=== PATIENT | female | born 1945 | race Caucasian/White ===

== ENCOUNTER 2017-07-30 10:26 | Observation (INO) | payer MEDICARE, MEDICAID ==
[~2017-07-30] VITALS: Ht 149.9 cm; Wt 73.5 kg
[2017-07-30] VITALS (11 sets, daily range): BP systolic 96–133; BP diastolic 55–77; PULSE 93–104; RESP 18–20; TEMP 98–98.8; O2SAT 90–100
[~2017-07-30 10:26] MED LIST: FERRF325 PO; HYDR25TA35 PO; LEVA750T9 PO; VENTAER INH
[2017-07-30] MEDS ORDERED: AMLO10TA2 PO (10:37)
[2017-07-30] MEDS ORDERED: HEMO324T PO (10:37)
--- NOTE | 2017-07-30 10:49 | PD ---
HPI Chief Complaint: Abnormal Results Time Seen by Provider: 10:35 Travel History International Travel<30 days: No Contact w/Intl Traveler<30days: No Traveled to known affect area: No History of Present Illness HPI This 72-year-old female was told to come here for blood transfusion. She had blood work done a few days ago which showed that her hemoglobin was 5 she has a history of anemia. She apparently bleeds from hemorrhoids. She has declined further GI workup including upper and lower endoscopies. She has not required transfusion before. She does get short of breath with exertion. She has not had any chest pain. She has a history of hypertension she has no history of diabetes. She has had iron deficiency anemia for quite some time and has been on different preparations. She does not tolerate them well but apparently has been on Hemocyte recently. [facility] Past Medical History Anemia: Yes Cardiovascular Problems: Yes (HTN) Diminished Hearing: Yes ([place]) Hypertension: Yes Influenza Vaccination: No ?: Not Ovarian Cysts: Yes Past Surgical History Eye Surgery: Yes (CATARACTS) Social History Alcohol Use: No Tobacco Use: Yes (06/11 PPD) Substance Use: No Allergies-Medications (Allergen,Severity, Reaction): Coded Allergies: Sulfa (Sulfonamide Antibiotics) (Unverified Allergy, Mild, 07/30/17) penicillin G (Unverified Allergy, Mild, 07/30/17) Reported Meds & Prescriptions Reported Meds & Active Scripts Active Reported Amlodipine (Amlodipine Besylate) 10 Mg Tab 10 Mg PO DAILY Hemocyte (Ferrous Fumarate) 324 Mg (106 Mg Iron) Tab 325 Mg PO DAILY Review of Systems General / Constitutional: No: Fever, Chills Eyes: No: Diploplia, Blurred Vision HENT: No: Headaches, Vertigo Cardiovascular: No: Chest Pain or Discomfort, Palpitations Respiratory: No: Cough, Shortness of Breath Gastrointestinal: No: Nausea, Vomiting, Diarrhea Genitourinary: No: Urgency, Frequency Musculoskeletal: No: Myalgias Skin: No Rash, No Itching Neurologic: No: Weakness, Dizziness Endocrine: No: Heat Intolerance, Cold Intolerance Hematologic/Lymphatic: No: Easy Bruising Physical Exam Narrative GENERAL: Well-developed female SKIN: Focused skin assessment warm/dry. Somewhat pale HEAD: Atraumatic. Normocephalic. EYES: Pupils equal and round. No scleral icterus. No injection or drainage. ENT: No nasal bleeding or discharge. Mucous membranes pink and moist. NECK: Trachea midline. No JVD. CARDIOVASCULAR: Regular rate and rhythm. No murmur appreciated. RESPIRATORY: No accessory muscle use. Clear to auscultation. Breath sounds equal bilaterally. GASTROINTESTINAL: Abdomen soft, non-tender, nondistended. Hepatic and splenic margins not palpable. MUSCULOSKELETAL: No obvious deformities. No clubbing. No cyanosis. No edema. NEUROLOGICAL: Awake and alert. No obvious cranial nerve deficits. Motor grossly within normal limits. Normal speech. PSYCHIATRIC: Appropriate mood and affect; insight and judgment normal. Data Data Last Documented VS Vital Signs Date Time Temp Pulse Resp B/P (MAP) Pulse Ox O2 Delivery O2 Flow Rate FiO2 07/30/17 10:28 98.7 103 18 96/55 (69) 99 Orders Orders Complete Blood Count With Diff (07/30/17 10:47) Basic Metabolic Panel (Bmp) (07/30/17 10:47) Red Blood Cells (Rbc) (07/30/17 10:47) Type And Screen (07/30/17 10:47) Chest, Single Ap (07/30/17 10:49) Potassium Chloride (Kcl) (07/30/17 11:30) Blood Product Administration (07/30/17 11:33) Admit Order (Ed Use Only) (07/30/17 11:43) Labs Laboratory Tests Test 07/30/17 11:00 White Blood Count 7.9 TH/MM3 Red Blood Count 2.55 MIL/MM3 Hemoglobin 5.1 GM/DL Hematocrit 17.0 % Mean Corpuscular Volume 66.9 FL Mean Corpuscular Hemoglobin 20.1 PG Mean Corpuscular Hemoglobin Concent 30.0 % Red Cell Distribution Width 20.7 % Platelet Count 330 TH/MM3 Mean Platelet Volume 8.1 FL Neutrophils (%) (Auto) 69.6 % Lymphocytes (%) (Auto) 19.4 % Monocytes (%) (Auto) 9.3 % Eosinophils (%) (Auto) 1.1 % Basophils (%) (Auto) 0.6 % Neutrophils # (Auto) 5.6 TH/MM3 Lymphocytes # (Auto) 1.5 TH/MM3 Monocytes # (Auto) 0.7 TH/MM3 Eosinophils # (Auto) 0.1 TH/MM3 Basophils # (Auto) 0.0 TH/MM3 CBC Comment AUTO DIFF Differential Comment AUTO DIFF CONFIRMED Blood Urea Nitrogen 13 MG/DL Creatinine 0.46 MG/DL Random Glucose 94 MG/DL Calcium Level 8.2 MG/DL Sodium Level 139 MEQ/L Potassium Level 3.4 MEQ/L Chloride Level 108 MEQ/L Carbon Dioxide Level 24.6 MEQ/L Anion Gap 6 MEQ/L Estimat Glomerular Filtration Rate 134 ML/MIN Magnesium Level 2.5 MG/DL MDM Medical Decision Making Medical Screen Exam Complete: Yes Emergency Medical Condition: Yes Medical Record Reviewed: Yes Differential Diagnosis Differential includes anemia, iron deficiency anemia, Narrative Course Hemoglobin today is 5.1. She'll be admitted for transfusion. Patient sees her doctor on a regular basis. She has refused upper and lower endoscopies in the past Diagnosis Primary Impression: Anemia Qualified Codes: D50.0 - Iron deficiency anemia secondary to blood loss ( chronic) Admitting Information Admitting Physician Requests: Observation Ananth Cohen MD Jul 30, 2017 10:49
[2017-07-30 11:10] LABS: AUTOMATED NEUTROPHIL # 5.6 TH/MM3 (1.8-7.7); BASOPHIL % 0.6 % (0.0-2.0); EOSINOPHIL # 0.1 TH/MM3 (0-0.4); EOSINOPHIL % 1.1 % (0.0-4.0); LYMPH % 19.4 % (9.0-44.0); LYMPHOCYTE # 1.5 TH/MM3 (1.0-4.8); MEAN CELL VOLUME 66.9 FL (80.0-100.0); MEAN CORPUSCULAR HEMOGLOBIN 20.1 PG (27.0-34.0); MEAN PLATELET VOLUME 8.1 FL (7.0-11.0); MONO % 9.3 % (0.0-8.0); MONOCYTE # 0.7 TH/MM3 (0-0.9); NEUT % 69.6 % (16.0-70.0); PLATELET COUNT 330 TH/MM3 (150-450); RED BLOOD COUNT 2.55 MIL/MM3 (4.00-5.30); RED CELL DISTRIBUTION WIDTH 20.7 % (11.6-17.2); WHITE BLOOD COUNT 7.9 TH/MM3 (4.0-11.0)
[2017-07-30 11:21] LABS: CALCIUM 8.2 MG/DL (8.5-10.1)
[2017-07-30 11:22] LABS: BICARBONATE 24.6 MEQ/L (21.0-32.0)
--- NOTE | 2017-07-30 11:22 | RADRPT ---
EXAM DATE/TIME: 07/30/2017 11:03 [place] COMPARISON: CHEST PA & LAT, July 06, 2011, 17:40. INDICATIONS : Short of breath on exertion. Sent by MD due to low hemoglobin. MEDICAL HISTORY : Hypertension. Ovarian cyst. Smoker. Anemia. SURGICAL HISTORY : None. ENCOUNTER: Initial ACUITY: 1 day PAIN SCORE: 0/10 LOCATION: chest FINDINGS: A single view of the chest demonstrates the lungs to be symmetrically aerated without evidence of mas s, infiltrate or effusion. The cardiomediastinal contours are unremarkable. Flocculent calcificatio n in the proximal right humerus characteristic of enchondroma, unchanged in appearance and compared t o prior chest x-ray June 2011. CO NCLUSION: The lungs are clear. Luis Carlos Adames MD on July 30, 2017 at 11:19 Board Certified Radiologist. This report was verified electronically.
[2017-07-30 11:25] LABS: CREATININE 0.46 MG/DL (0.50-1.00)
[2017-07-30 11:28] LABS: HEMOGLOBIN 5.1 GM/DL (11.6-15.3)
[2017-07-30] MEDS ORDERED: POTASSIUM CHLORIDE 20 MEQ CONTROLLED RELEASE TAB PO ONE (11:30)
[2017-07-30] MEDS ORDERED: LACTULOSE SYRUP 20 GM/30 ML CUP PO PRN (13:00)
[2017-07-30] MEDS ORDERED: MAGNESIUM HYDROXIDE SUSP 30 ML CUP PO PRN (13:00)
[2017-07-30] MEDS ORDERED: NALOXONE HCL 0.4 MG/ML AMP IV PUSH PRN (13:00)
[2017-07-30] MEDS ORDERED: SENNOSIDES 8.6 MG TAB PO PRN (13:00)
[2017-07-30] MEDS ORDERED: BISACODYL 10 MG SUPP RECTAL PRN (13:00)
[2017-07-30] MEDS ORDERED: SODIUM CHLORIDE 0.9% FLUSH 10 ML FLUSH IV FLUSH PRN (13:00)
[2017-07-30] MEDS ORDERED: ACETAMINOPHEN 500 MG CPLT PO ONE (14:15)
--- NOTE | 2017-07-30 14:27 | HHI.HP ---
HPI Service [facility] Primary [facility] Physician Miles Mcneal MD Admission Diagnosis ANEMIA Diagnoses: Chief Complaint: Anemia Travel History International Travel<30 Days: No Contact w/Intl Traveler <30 Da: No Traveled to Known Affected Are: No History of Present Illness Patient is a 72-year-old female with a history of ongoing iron deficiency anemia with a diagnosis of "hemorrhoids". Her hemorrhoids have not been bleeding lately although she has had a recent viral syndrome. She says she's been lightheaded and dizzy. She's had a headache. She's been very fatigued. She was caught by her primary care doctor and had a hemoglobin of 5. For this she was urged to come to the hospital. She has been taking iron pills but reports that they give her constipation and this makes her hemorrhoids worse. She notes no abdominal pain, no nausea or vomiting. She has not had any fevers or chills. She has had intermittent diarrhea with constipation. In the past she has been recommended for gastrointestinal workup but has declined any further evaluation cleaning "I don't want to know ". At this time the patient' s come to the emergency room and was found to have a hemoglobin of 5.1 with an MCV of 66.9. Patient is recommended for transfusion and she is agreeable Review of Systems Constitutional: COMPLAINS OF: Dizziness, DENIES: Diaphoretic episodes, Fatigue , Fever, Weight gain, Weight loss, Chills, Change in appetite, Night Sweats Endocrine: DENIES: Abnorml menstrual pattern, Heat/cold intolerance, Polydipsia , Polyuria, Polyphagia Eyes: DENIES: Blurred vision, Diplopia, Eye inflammation, Eye pain, Vision loss , Photosensitivity, Double Vision Ears, nose, mouth, throat: DENIES: Tinnitus, Hearing loss, Vertigo, Nasal discharge, Oral lesions, Throat pain, Hoarseness, Ear Pain, Running Nose, Epistaxis, Sinus Pain, Toothache, Odynophagia Respiratory: DENIES: Apneas, Cough, Snoring, Wheezing, Hemoptysis, Sputum production, Shortness of breath Cardiovascular: DENIES: Chest pain, Palpitations, Syncope, Dyspnea on Exertion , PND, Lower Extremity Edema, Orthopnea, Claudication Gastrointestinal: DENIES: Abdominal pain, Black stools, Bloody stools, Constipation, Diarrhea, Nausea, Vomiting, Difficulty Swallowing, Anorexia Genitourinary: DENIES: Abnormal vaginal bleeding, Dysmenorrhea, Dyspareunia, Sexual dysfunction, Urinary frequency, Urinary incontinence, Urgency, Hematuria , Dysuria, Nocturia, Vaginal discharge Musculoskeletal: DENIES: Joint pain, Muscle aches, Stiffness, Joint Swelling, Back pain, Neck pain Integumentary: DENIES: Abnormal pigmentation, Pruritus, Rash, Nail changes, Breast masses, Breast skin changes, Nipple discharge Hematologic/lymphatic: DENIES: Bruising, Lymphadenopathy Immunologic/allergic: DENIES: Eczema, Urticaria Neurologic: COMPLAINS OF: Headache, DENIES: Abnormal gait, Localized weakness, Paresthesias, Seizures, Speech Problems, Tremor, Poor Balance Psychiatric: DENIES: Anxiety, Confusion, Mood changes, Depression, Hallucinations, Agitation, Suicidal Ideation, Homicidal Ideation, Delusions Past Family Social History Past Medical History Hypertension Iron deficiency anemia "Asthma". Past Surgical History Cataracts Hemorrhoidal banding Reported Medications Reviewed in EMR, patient also takes albuterol, Tylenol and aspirin as well as daily "[id number] intestinal enzymes " Allergies: Coded Allergies: Sulfa (Sulfonamide Antibiotics) (Unverified Allergy, Mild, 07/30/17) penicillin G (Unverified Allergy, Mild, 07/30/17) Active Ordered Medications Reviewed in the EMR Family History Mother young of pneumonia, father of consultation from diabetes with coma Social History Patient smokes at least a pack a day, lives alone, no tobacco or alcohol dependency Physical Exam Vital Signs Vital Signs Date Time Temp Pulse Resp B/P (MAP) Pulse Ox O2 Delivery O2 Flow Rate FiO2 07/30/17 13:20 98.6 93 18 114/56 (75) 100 07/30/17 12:45 07/30/17 12:28 98 18 117/71 (86) 97 Room Air 07/30/17 10:28 98.7 103 18 96/55 (69) 99 Physical Exam GENERAL: This is a well-nourished, well-developed patient, pale and anxious SKIN: No rashes, ecchymoses or lesions. Cool and dry. HEAD: Atraumatic. Normocephalic. No temporal or scalp tenderness. EYES: Pupils equal round and reactive. Extraocular motions intact. No scleral icterus. No injection or drainage. ENT: Nose without bleeding, purulent drainage or septal hematoma. Throat without erythema, tonsillar hypertrophy or exudate. Uvula midline. Airway patent. NECK: Trachea midline. No JVD or lymphadenopathy. Supple, nontender, no meningeal signs. CARDIOVASCULAR: Regular rate and rhythm without murmurs, gallops, or rubs. RESPIRATORY: Clear to auscultation. Breath sounds equal bilaterally. No wheezes , rales, or rhonchi. GASTROINTESTINAL: Abdomen soft, non-tender, nondistended. No hepato-splenomegaly , or palpable masses. No guarding. MUSCULOSKELETAL: Extremities without clubbing, cyanosis, or edema. No joint tenderness, effusion, or edema noted. No calf tenderness. Negative Homans sign bilaterally. NEUROLOGICAL: Awake and alert. Cranial nerves II through XII intact. Motor and sensory grossly within normal limits. Five out of 5 muscle strength in all muscle groups. Normal speech. Laboratory Laboratory Tests Test 07/30/17 11:00 White Blood Count 7.9 Red Blood Count 2.55 Hemoglobin 5.1 Hematocrit 17.0 Mean Corpuscular Volume 66.9 Mean Corpuscular Hemoglobin 20.1 Mean Corpuscular Hemoglobin Concent 30.0 Red Cell Distribution Width 20.7 Platelet Count 330 Mean Platelet Volume 8.1 Neutrophils (%) (Auto) 69.6 Lymphocytes (%) (Auto) 19.4 Monocytes (%) (Auto) 9.3 Eosinophils (%) (Auto) 1.1 Basophils (%) (Auto) 0.6 Neutrophils # (Auto) 5.6 Lymphocytes # (Auto) 1.5 Monocytes # (Auto) 0.7 Eosinophils # (Auto) 0.1 Basophils # (Auto) 0.0 CBC Comment AUTO DIFF Differential Comment AUTO DIFF CONFIRMED Blood Urea Nitrogen 13 Creatinine 0.46 Random Glucose 94 Calcium Level 8.2 Sodium Level 139 Potassium Level 3.4 Chloride Level 108 Carbon Dioxide Level 24.6 Anion Gap 6 Estimat Glomerular Filtration Rate 134 Result Diagram: 07/30/17 1100 07/30/17 1100 Caprini VTE Risk Assessment Caprini VTE Risk Assessment: Mod/High Risk (score >= 2) VTE Pharm Contraindication: Patient refusal Caprini Risk Assessment Model Point Value = 1 Point Value = 2 Point Value = 3 Point Value = 5 Age 41-60 Minor surgery BMI > 25 kg/m2 Swollen legs Varicose veins or History of unexplained or recurrent spontaneous Oral contraceptives or hormone replacement Sepsis (< 1 month) Serious lung disease, including pneumonia (< 1 month) Abnormal pulmonary function Acute myocardial infarction Congestive heart failure (< 1 month) History of inflammatory bowel disease Medical patient at bed rest Age 61-74 Arthroscopic surgery Major open surgery (> 45 min) Laparoscopic surgery (> 45 min) Malignancy Confined to bed (> 72 hours) Immobilizing plaster cast Central venous access Age >= 75 History of VTE Family history of VTE Factor V Leiden Prothrombin [id number] Lupus anticoagulant Anticardiolipin antibodies Elevated serum homocysteine Heparin-induced thrombocytopenia Other congenital or acquired thrombophilia Stroke (< 1 month) Elective arthroplasty Hip, pelvis, or leg fracture Acute spinal cord injury (< 1 month) Prophylaxis Regimen Total Risk Factor Score Risk Level Prophylaxis Regimen 0-1 Low Early ambulation 2 Moderate Order ONE of the following: *Sequential Compression Device (SCD) *Heparin 5000 units SQ BID 3-4 Higher Order ONE of the following medications: *Heparin 5000 units SQ TID *Enoxaparin/Lovenox 40 mg SQ daily (WT < 150 kg, CrCl > 30 mL/min) *Enoxaparin/Lovenox 30 mg SQ daily (WT < 150 kg, CrCl > 10-29 mL/min) *Enoxaparin/Lovenox 30 mg SQ BID (WT < 150 kg, CrCl > 30 mL/min) AND/OR *Sequential Compression Device (SCD) 5 or more Highest Order ONE of the following medications: *Heparin 5000 units SQ TID (Preferred with Epidurals) *Enoxaparin/Lovenox 40 mg SQ daily (WT < 150 kg, CrCl > 30 mL/min) *Enoxaparin/Lovenox 30 mg SQ daily (WT < 150 kg, CrCl > 10-29 mL/min) *Enoxaparin/Lovenox 30 mg SQ BID (WT < 150 kg, CrCl > 30 mL/min) AND *Sequential Compression Device (SCD) Assessment and Plan Problem List: (1) HTN (hypertension) ICD Code: I10 - Essential (primary) hypertension Plan: Patient somewhat hypotensive likely due to severe anemia, we'll hold her amlodipine and follow post transfusion to resume (2) Anemia ICD Code: D64.9 - Anemia, unspecified Status: Acute Plan: Patient's anemia appears to be microcytic and likely iron deficiency per her history. Patient will benefit from following her iron levels and IV iron if needed. I have offered this patient endoscopy given her severe microcytic anemia with unsatisfactory explanation of "hemorrhoids", however the patient and her daughter have refused. I have also suggested a CT of the abdomen and pelvis. This they have refused also They are agreeable to blood transfusion which we will do as well as following up his iron levels as above Code Status Full code Discussed Condition With Patient, daughter, ER Darrell Problem Qualifiers (1) Anemia: Qualified Codes: D50.0 - Iron deficiency anemia secondary to blood loss ( chronic) Eryn Natarajan MD Jul 30, 2017 14:26
[2017-07-30 15:05] LABS: MAGNESIUM 2.5 MG/DL (1.5-2.5)
[2017-07-30 17:09] LABS: IRON (FE) 10 MCG/DL (50-170)
[2017-07-30 17:18] LABS: TOTAL IRON BINDING CAPACITY 501 MCG/DL (250-450)
[2017-07-30] MEDS ORDERED: IRON SUCROSE INJ 100 MG in SODIUM CHLORIDE 0.9% INJ 100 ML IV ONE (18:00)
[2017-07-30] MEDS ORDERED: LORazepam 1 MG TAB PO ONE (19:00)
[2017-07-30] MEDS: DOCUSATE SODIUM 50 MG/SENNA 8.6 MG TAB PO SCH (21:00)
[2017-07-30] MEDS: SODIUM CHLORIDE 0.9% FLUSH 10 ML FLUSH IV FLUSH SCH (21:00)
[2017-07-31 00:02] VITALS: BP 110/67; PULSE 98; RESP 20; TEMP 98.2; O2SAT 92
[2017-07-31 02:42] VITALS: BP 142/79; PULSE 100; RESP 18; TEMP 97.2; O2SAT 91
[2017-07-31 05:21] LABS: AUTOMATED NEUTROPHIL # 9.1 TH/MM3 (1.8-7.7); BASOPHIL % 0.4 % (0.0-2.0); EOSINOPHIL # 0.2 TH/MM3 (0-0.4); EOSINOPHIL % 1.5 % (0.0-4.0); HEMATOCRIT 25.5 % (35.0-46.0); HEMOGLOBIN 8.4 GM/DL (11.6-15.3); LYMPH % 13.1 % (9.0-44.0); LYMPHOCYTE # 1.5 TH/MM3 (1.0-4.8); MEAN CELL VOLUME 73.9 FL (80.0-100.0); MEAN CORPUSCULAR HEMOGLOBIN 24.2 PG (27.0-34.0); MEAN CORPUSCULAR HGB CONC 32.8 % (32.0-36.0); MEAN PLATELET VOLUME 8.3 FL (7.0-11.0); MONO % 7.1 % (0.0-8.0); MONOCYTE # 0.8 TH/MM3 (0-0.9); NEUT % 77.9 % (16.0-70.0); PLATELET COUNT 309 TH/MM3 (150-450); RED BLOOD COUNT 3.46 MIL/MM3 (4.00-5.30); RED CELL DISTRIBUTION WIDTH 22.8 % (11.6-17.2); WHITE BLOOD COUNT 11.6 TH/MM3 (4.0-11.0)
[2017-07-31 05:48] LABS: BICARBONATE 23.4 MEQ/L (21.0-32.0); CALCIUM 8.3 MG/DL (8.5-10.1)
[2017-07-31 05:52] LABS: CREATININE 0.36 MG/DL (0.50-1.00)
[2017-07-31 07:26] LABS: KERATOCYTES OCC (NORMAL); OVALOCYTES 1+ (NORMAL); TARGET CELLS 1+ (NORMAL)
[2017-07-31] MEDS ORDERED: IRON SUCROSE INJ 100 MG in SODIUM CHLORIDE 0.9% INJ 100 ML IV ONE (08:00)
[2017-07-31] MEDS: DOCUSATE SODIUM 50 MG/SENNA 8.6 MG TAB PO SCH (09:00)
[2017-07-31 09:08] VITALS: BP 123/58; PULSE 98; RESP 14; TEMP 99.2; O2SAT 95
[2017-07-31] MEDS: SODIUM CHLORIDE 0.9% FLUSH 10 ML FLUSH IV FLUSH SCH (09:19)
[2017-07-31] MEDS ORDERED: PERI PO (10:11)
--- NOTE | 2017-07-31 10:11 | HHI.DCPOC ---
Discharge Care Plan Diagnosis: (1) Constipation (2) HTN (hypertension) (3) Anemia Goals to Promote Your Health * To prevent worsening of your condition and complications * To maintain your health at the optimal level Directions to Meet Your Goals Take your medications as prescribed Follow your dietary instruction Follow activity as directed Keep your appointments as scheduled Take your immunizations and boosters as scheduled If your symptoms worsen call your PCP, if no PCP go to Urgent Care Center or Emergency Room Smoking is Dangerous to Your Health. Avoid second hand smoke Call the 24-hour hour crisis hotline for domestic abuse at Eryn Natarajan MD Jul 31, 2017 10:11
[2017-07-31 10:40] VITALS: O2SAT 92
--- NOTE | 2017-07-31 11:42 | HHI.DS ---
Discharge Summary Admission Date Jul 30, 2017 at 11:45 Discharge Date: Jul 31, 2017 Admitting Diagnosis ANEMIA (1) HTN (hypertension) ICD Code: I10 - Essential (primary) hypertension (2) Anemia ICD Code: D64.9 - Anemia, unspecified Status: Acute Procedures Transfusion PRBCs Brief History - From Admission Patient is a 72-year-old female with a history of ongoing iron deficiency anemia with a diagnosis of "hemorrhoids". Her hemorrhoids have not been bleeding lately although she has had a recent viral syndrome. She says she's been lightheaded and dizzy. She's had a headache. She's been very fatigued. She was caught by her primary care doctor and had a hemoglobin of 5. For this she was urged to come to the hospital. She has been taking iron pills but reports that they give her constipation and this makes her hemorrhoids worse. She notes no abdominal pain, no nausea or vomiting. She has not had any fevers or chills. She has had intermittent diarrhea with constipation. In the past she has been recommended for gastrointestinal workup but has declined any further evaluation cleaning "I don't want to know ". At this time the patient' s come to the emergency room and was found to have a hemoglobin of 5.1 with an MCV of 66.9. Patient is recommended for transfusion and she is agreeable CBC/BMP: 07/31/17 0455 07/31/17 0455 Significant Findings Laboratory Tests Test 07/30/17 11:00 07/31/17 04:55 Red Blood Count 2.55 MIL/MM3 (4.00-5.30) 3.46 MIL/MM3 (4.00-5.30) Hemoglobin 5.1 GM/DL (11.6-15.3) 8.4 GM/DL (11.6-15.3) Hematocrit 17.0 % (35.0-46.0) 25.5 % (35.0-46.0) Mean Corpuscular Volume 66.9 FL (80.0-100.0) 73.9 FL (80.0-100.0) Mean Corpuscular Hemoglobin 20.1 PG (27.0-34.0) 24.2 PG (27.0-34.0) Mean Corpuscular Hemoglobin Concent 30.0 % (32.0-36.0) Red Cell Distribution Width 20.7 % (11.6-17.2) 22.8 % (11.6-17.2) Monocytes (%) (Auto) 9.3 % (0.0-8.0) Creatinine 0.46 MG/DL (0.50-1.00) 0.36 MG/DL (0.50-1.00) Calcium Level 8.2 MG/DL (8.5-10.1) 8.3 MG/DL (8.5-10.1) Potassium Level 3.4 MEQ/L (3.5-5.1) Chloride Level 108 MEQ/L (98-107) Iron Level 10 MCG/DL (50-170) Total Iron Binding Capacity 501 MCG/DL (250-450) Percent Iron Saturation 2.0 % (20-50) White Blood Count 11.6 TH/MM3 (4.0-11.0) Neutrophils (%) (Auto) 77.9 % (16.0-70.0) Neutrophils # (Auto) 9.1 TH/MM3 (1.8-7.7) Target Cells 1+ (NORMAL) Ovalocytes 1+ (NORMAL) Keratocytes OCC (NORMAL) PE at Discharge GENERAL: This is a well-nourished, well-developed patient, in no apparent distress. CARDIOVASCULAR: Regular rate and rhythm without murmurs, gallops, or rubs. RESPIRATORY: Clear to auscultation. Breath sounds equal bilaterally. No wheezes , rales, or rhonchi. GASTROINTESTINAL: Abdomen soft, non-tender, nondistended. Normal active bowel sounds MUSCULOSKELETAL: Extremities without clubbing, cyanosis, or edema. NEURO: Alert & Oriented x4 to person, place, time, situation. Moves all ext x4 Pt update on day of discharge Doing better, lest symptoms of SOB, lightheadedness and chest discomfort Still refuses further anemia work up D/W patient and daughter Hospital Course Patient is a 72 female with chronic anemia and chronic constipation. She received a transfusion for a hg of less than 6. Repeat counts were 8.4, and her iron was 10 with subsequent iron infusion. she refuses ct abd pelvis or endoscopy for fear she may have cancer she will be discharged home Pt Condition on Discharge: Good Discharge Disposition: Discharge Home Discharge Time: <= 30 minutes Discharge Instructions DIET: Follow Instructions for: As Tolerated, No Restrictions Activities you can perform: Regular-No Restrictions Follow up Referrals: PCP Follow-up - 1 Week New Medications: Sennosides-Docusate Sodium (Gnp Senna Plus 8.6-50 mg) 8.6 Mg-50 Mg Tab 1 TAB PO BID for Constipation, #62 TAB Continued Medications: Amlodipine (Amlodipine) 10 Mg Tab 10 MG PO DAILY for Blood Pressure Management, #30 TAB 0 Refills Ferrous Fumarate (Hemocyte) 324 Mg (106 Mg Iron) Tab 325 MG PO DAILY for Nutritional Supplement, #30 TAB 0 Refills Eryn Natarajan MD Jul 31, 2017 11:41
== END 2017-07-31 12:00 | disposition home or self-care (01) ==
LOC: PHED 10:26 → PHEDA 11:45 → PH3A 12:55
PROVIDERS: ADMIT Hospitalist; ATTEND Hospitalist
DX: I10 Essential (primary) hypertension (principal); D50.0 Iron deficiency anemia secondary to blood loss (chronic); I95.9 Hypotension, unspecified; K64.9 Unspecified hemorrhoids; R19.7 Diarrhea, unspecified; K59.09 Other constipation; J45.909 Unspecified asthma, uncomplicated; H91.90 Unspecified hearing loss, unspecified ear; F17.200 Nicotine dependence, unspecified, uncomplicated
CPT/HCPCS: 36430; 71045; 80048; 83540; 83550; 83735; 85025; 86850; 86900; 86901; 86920; 96365; 99285; G0378; J1756; P9016